=== PATIENT | male | born 1945 | race Caucasian/White ===

== ENCOUNTER 2022-05-07 13:21 | Inpatient (IN) | payer MEDICARE, OTHER ==
[~2022-05-07] VITALS: Ht 154.9 cm; Wt 102.7 kg
--- NOTE | 2022-05-07 14:00 | NUR ---
BIB FAMILY C/O NAUSEA VOMITING DIARRHEA, ABDOMINAL CRAMPING X 2 WEEKS.
[2022-05-07] MEDS ORDERED: MORPHINE SULFATE INJ 2 MG/ML DISP.SYRIN IV ONE (14:30)
[2022-05-07] MEDS ORDERED: FAMOTIDINE/PF INJ 20 MG/2 ML VIAL IV ONE ×2 (14:30→14:53)
[2022-05-07] MEDS ORDERED: IV NS 0.9% 1,000 ML IV ONE (14:30)
--- NOTE | 2022-05-07 14:45 | NUR ---
BLOOD DRAWN AND SENT TO LAB
[2022-05-07] MEDS ORDERED: MORPHINE SULFATE INJ 4 MG/ML DISP.SYRIN ONE (14:53)
[2022-05-07 15:04] LABS: BASOPHILS % (AUTO) 0.1 % (0.0-2.0); EOSINOPHILS % (AUTO) 0.1 % (0.0-6.0); HEMATOCRIT 38 % (39-51); HEMOGLOBIN 12.1 g/dL (13.5-17.5); LYMPHOCYTES # (AUTO) 1.5 K/uL (0.8-4.8); LYMPHOCYTES % (AUTO) 12.1 % (20.0-44.0); MEAN CORPUSCULAR HGB CONC 32 g/dl (31.0-36.0); MEAN CORPUSCULAR VOLUME 75 fL (80-96); MONOCYTES % (AUTO) 7.8 % (2.0-12.0); NEUTROPHILS # (AUTO) 10.1 K/uL (1.8-8.9); NEUTROPHILS % (AUTO) 79.9 % (43.0-81.0); PLATELET COUNT (AUTO) 358 K/uL (150-450); RED BLOOD CELL COUNT(AUTO) 5.04 MIL/uL (4.5-6.0); WHITE BLOOD COUNT (AUTO) 12.6 K/uL (4.3-11.0)
[2022-05-07 15:16] LABS: CALCIUM, SERUM 8.7 mg/dL (8.5-10.1); POTASSIUM 3.7 mmol/L (3.5-5.1)
[2022-05-07 15:29] LABS: ALBUMIN 2.8 g/dL (3.4-5.0); BILIRUBIN,TOTAL 0.8 mg/dL (0.2-1.0); TOTAL PROTEIN, SERUM 7.6 g/dL (6.4-8.2)
[2022-05-07] MEDS ORDERED: IOHEXOL-300 100 ML VIAL IV ONE (15:45)
--- NOTE | 2022-05-07 15:55 | NUR ---
URINE SAMPLE SENT TO LAB
[2022-05-07 16:07] LABS: BILIRUBIN,URINE NEGATIVE (NEGATIVE); COLOR,URINE YELLOW (YELLOW); LEUKOCYTE ESTERASE ,URINE NEGATIVE (NEGATIVE); NITRITE, URINE NEGATIVE (NEGATIVE); PROTEIN,URINE NEGATIVE (NEGATIVE); UGLUCOSE >=1000 mg/dL (NEGATIVE); UROBILINOGEN,URINE 0.2 EU/dL (0.2)
--- NOTE | 2022-05-07 16:11 | NUR ---
SWAB FOR COVID19 SENT TO LAB
[2022-05-07 16:15] LABS: BACTERIA,URINE None seen /HPF (None Seen); RBC,URINE 0-2 /HPF (0-2); SQUAMOUS EPITHELIAL CELL,UR 0-2 /HPF (None Seen); WBC,URINE 0-2 /HPF (0-3)
--- NOTE | 2022-05-07 16:25 | NUR ---
PATIENT TAKEN TO CT VIA TIMO
[2022-05-07] MEDS ORDERED: ONDANSETRON HCL/PF 4 MG/2 ML VIAL ONE (17:27)
[2022-05-07] MEDS ORDERED: HYDROMORPHONE 1 MG/1 ML DISP.SYRIN ONE (17:28)
[2022-05-07] MEDS ORDERED: ONDANSETRON HCL/PF 4 MG/2 ML VIAL IV ONE (17:30)
[2022-05-07] MEDS ORDERED: HYDROMORPHONE 1 MG/1 ML DISP.SYRIN IV ONE (17:30)
[2022-05-07] MEDS ORDERED: PIPERACILLIN /TAZOBACTAM 3.375 G in IV D5W 50 ML IV ONE (17:30)
[2022-05-07 17:36] LABS: ABG BASE EXCESS 2.2 mmol/L; ABG PCO2 40.3 mmHg (35.0-45.0); ABG PH 7.437 (7.350-7.450); ABG PO2 58.2 mmHg (75.0-100.0); COHb 0.9 % (0.5-1.5); O2Hb 88.4 % (94.0-97.0); SITE, ABG Other; VENT MODE, BG room air
--- NOTE | 2022-05-07 17:41 | NUR ---
MOVE SHEET SUBMITTED.
--- NOTE | 2022-05-07 17:44 | NUR ---
DR. GUEVARA SPEAKING WITH DR. TRAN
[2022-05-07] MEDS ORDERED: GLIP5TAB13 PO (17:45)
[2022-05-07] MEDS ORDERED: CLON0.1T PO (17:45)
[2022-05-07] MEDS ORDERED: ERGO500093 PO (17:45)
[2022-05-07] MEDS ORDERED: DOXA1TAB4 PO (17:45)
[2022-05-07] MEDS ORDERED: CARV12.52 PO (17:45)
[2022-05-07] MEDS ORDERED: ROSU20TA32 PO (17:45)
[2022-05-07] MEDS ORDERED: APIX5TAB PO (17:45)
[2022-05-07] MEDS ORDERED: INSU100I24 SQ (17:45)
[2022-05-07] MEDS ORDERED: EMPA10TA PO (17:45)
[2022-05-07] MEDS ORDERED: DICY10CA37 PO (17:45)
[2022-05-07] MEDS ORDERED: METF-441 PO (17:45)
[2022-05-07] MEDS ORDERED: LOSA1TAB39 PO (17:45)
--- NOTE | 2022-05-07 17:47 | NUR ---
[facility] CALLED PATIENT EDUCATOR PAGED.
[2022-05-07 17:55] LABS: BAND % (MANUAL) 1 % (0.0-5.0); LYMPHOCYTES % (MANUAL) 9 % (16-48); MONOCYTES % (MANUAL) 6 % (0-11.0); NEUTROPHILS % (MANUAL) 84 (42-76)
[2022-05-07] MEDS ORDERED: ACETAMINOPHEN 325 MG TABLET PO PRN (18:00)
[2022-05-07] MEDS ORDERED: hydrALAZINE HCL IV 20 MG VIAL IV PRN (18:00)
[2022-05-07] MEDS ORDERED: Z GUARD REMEDY 4 OZ OINT TP PRN (18:00)
[2022-05-07] MEDS ORDERED: PIPERACILLIN /TAZOBACTAM 3.375 G VIAL IV ONE (18:00)
[2022-05-07] MEDS ORDERED: MAG HYDROX/AL HYDROX/SIMETH 30 ML UDC PO PRN (18:00)
[2022-05-07] MEDS ORDERED: MAGNESIUM HYDROXIDE 30 ML UDC PO PRN (18:00)
[2022-05-07] MEDS ORDERED: DEXTROSE 50%-WATER 50 ML DISP.SYRIN IV PRN (18:00)
--- NOTE | 2022-05-07 19:38 | NUR ---
[address] [place] [address] 2
--- NOTE | 2022-05-07 19:52 | NUR ---
REPORT GIVEN TO VESNA RN ROOM 313-2 FOR SAMIA
[2022-05-07 20:15] VITALS: BP 133/57
[2022-05-07] MEDS: IV NS 0.9% 1,000 ML IV PRN (20:40)
--- NOTE | 2022-05-07 20:45 | NUR ---
MS CHIEF ENGINEER RESEARCH NOTE PATIENT ARRIVED FROM ER VIA WHEELCHAIR WITH DAUGHTER, PT ABLE TO AMBULATE, DOESN'T USE WALKER OR CANE AT HOME. PATIENT ALERT/ORIENTED X 3, PRIMARILY STATELESS SPEAKING BUT ABLE TO SPEAK ENOUGH KYRGYZ TO MAKE NEEDS KNOWN. NO C/O PAIN AT THIS TIME BUT PATIENT REPORTING NAUSEA. PATIENT STABLE ON RA, NO S/S OF DISTRESS OR SOB NOTED, BREATHING EVEN AND UNLABORED. PATIENT STATES HE DOESN'T HAVE DENTURES, HEARING AIDS OR PACEMAKER. PATIENT REFUSED SKIN ASSESSMENT BUT STATED HE DOESN'T HAVE ANY WOUNDS. PATIENT BROUGHT HOME MEDS WITH HIM, WILL TAKE TO PHARMACY IN AM. IV ACCESS ON RIGHT WRIST #20G INTACT AND FLUSHING WELL. PATIENT STATES HE HAS COVID VACCINE MODERNA X 3 BUT UNABLE TO REMEMBER DATES, PT QUALIFIES FOR FLU AND PNEUMONIA VACCINE, STATED HE WOULD LIKE TO GET THEM. ORIENTED PATIENT TO ROOM AND HOW TO USE CALL LIGHT. SAFETY MEASURES IN PLACE: CALL LIGHT WITHIN REACH, SIDE RAILS UP X 2, BED LOCKED IN LOWEST POSITION, BED ALARM ON. WILL CONTINUE TO MONITOR PATIENT
[2022-05-07] MEDS: CARVEDILOL 12.5 MG TABLET PO SCH (21:00)
[2022-05-07] MEDS: CLONIDINE HCL 0.1 MG TABLET PO SCH (21:00)
[2022-05-07] MEDS: ONDANSETRON HCL/PF 4 MG/2 ML VIAL IVP PRN (21:01)
--- NOTE | 2022-05-07 21:15 | NUR ---
MS RN NOTE HELD SCHEDULED CLONIDINE AND COREG D/T LOW HEART RATE = 54, BP WNL
[2022-05-07] MEDS: *INSULIN REGULAR(HUMULIN R)HUM 100 UNIT/ML VIAL SQ PRN (22:38)
[2022-05-07] MEDS: BLOOD SUGAR DIAGNOSTIC 1 EACH STRIP VI SCH (22:40)
[2022-05-08] MEDS: ZOSYN IVPB 3.375 G in IV D5W 50ml IV SCH ×4 (00:06→17:40)
[2022-05-08] MEDS: ONDANSETRON HCL/PF 4 MG/2 ML VIAL IVP PRN ×3 (03:05→18:17)
[2022-05-08] MEDS ORDERED: PIPERACILLIN /TAZOBACTAM 3.375 G VIAL IV ONE ×2 (05:50)
[2022-05-08 06:12] LABS: BASOPHILS % (AUTO) 0.1 % (0.0-2.0); HEMATOCRIT 38 % (39-51); HEMOGLOBIN 11.9 g/dL (13.5-17.5); LYMPHOCYTES # (AUTO) 1.2 K/uL (0.8-4.8); LYMPHOCYTES % (AUTO) 8.8 % (20.0-44.0); MEAN CORPUSCULAR HGB CONC 31 g/dl (31.0-36.0); MEAN CORPUSCULAR VOLUME 76 fL (80-96); MONOCYTES # (AUTO) 0.7 K/uL (0.1-1.30); MONOCYTES % (AUTO) 5.3 % (2.0-12.0); NEUTROPHILS % (AUTO) 85.8 % (43.0-81.0); PLATELET COUNT (AUTO) 356 K/uL (150-450); RED BLOOD CELL COUNT(AUTO) 5.02 MIL/uL (4.5-6.0); WHITE BLOOD COUNT (AUTO) 13.9 K/uL (4.3-11.0)
[2022-05-08] MEDS: MORPHINE SULFATE INJ 2 MG/ML DISP.SYRIN IV PRN ×2 (06:40→18:22)
[2022-05-08] MEDS: BLOOD SUGAR DIAGNOSTIC 1 EACH STRIP VI SCH ×4 (06:51→22:05)
[2022-05-08] MEDS: INSULIN REGULAR, HUMAN 100 UNIT/ML 3 ML VIAL SQ PRN ×2 (06:55→17:23)
--- NOTE | 2022-05-08 06:59 | NUR ---
MS RN CLOSING NOTE PATIENT AWAKE IN BED, ALERT/ORIENTED X 3, PT PRIMARILY BELGIAN SPEAKING BUT SPEAKS ENOUGH SERBIAN TO MAKE NEEDS KNOWN. PT STABLE ON RA, NO S/S OF DISTRESS OR SOB NOTED, BREATHING EVEN AND UNLABORED. IV ACCESS ON RIGHT WRIST #20G INTACT AND INFUSING NS @ 75 ML/HR. PATIENT NAUSEOUS MOST OF SHIFT, ZOFRAN ADMINISTERED BUT ONLY PROVIDED TEMPORARY RELIEF, NO EPISODES OF EMESIS. PATIENT C/O 04/17 ABDOMINAL PAIN, NOTIFIED CONVEYOR WEIGHER OPERATOR MD WITH ORDER FOR MORPHINE 2 MG IV Q4H. MEDICATIONS GIVEN ORDERED, PT NEEDS MET THROUGHOUT SHIFT. SAFETY MEASURES IN PLACE: CALL LIGHT WITHIN REACH, SIDE RAILS UP X 2, BED LOCKED IN LOWEST POSITION, BED ALARM ON. WILL CONTINUE TO MONITOR PATIENT
[2022-05-08 07:07] LABS: CALCIUM, SERUM 8.4 mg/dL (8.5-10.1); PHOSPHORUS 3.7 mg/dL (2.5-4.9); POTASSIUM 3.5 mmol/L (3.5-5.1)
[2022-05-08 08:00] VITALS: BP 137/89
--- NOTE | 2022-05-08 08:35 | NUR ---
RN OPENING NOTE RECEIVED PATIENT IN BED, AWAKE, ALERT AND ORIENTED. ABLE TO COMMUNICATE NEEDS WITH THE STAFFS. AFEBRILE AND NOT ON ANY FORM OF ACUTE DISTRESS. BREATHING EVEN AND NON LABORED. WITH IV ACCESS ON R WRIST 20G, INFUSING WITH NS AT 75ML/HR. SAFETY MEASURES IN PLACE. KEPT BED IN LOCKED AND IN LOW POSITION TO REDUCE INJURY. ADVISED TO USE THE CALL LIGHT WHEN IN NEED OF ASSISTANCE.
[2022-05-08] MEDS: DOXAZOSIN MESYLATE (1 MG) 1 MG TABLET PO SCH (09:04)
[2022-05-08] MEDS: CARVEDILOL 12.5 MG TABLET PO SCH ×2 (09:05→21:25)
[2022-05-08] MEDS: CLONIDINE HCL 0.1 MG TABLET PO SCH ×2 (09:05→21:26)
--- NOTE | 2022-05-08 10:21 | NUR ---
RN NOTES: RECEIVED ORDER FROM DR GUEVARA PT WILL HAVE SURGERY (CT GUIDED DRAINAGE OF DIVERTICULAR ABSCESS) TOMORROW. PT VERBALIZED HE HAD HIS ELIQUIS LAST Sunday05/06/22, NPO POST MIDNIGHT. ORDERS NOTED AND CARRIED OUT , PT MADE AWARE.
[2022-05-08] MEDS: IV NS 0.9% 1,000 ML IV PRN (11:41)
[2022-05-08] MEDS: *INSULIN REGULAR(HUMULIN R)HUM 100 UNIT/ML VIAL SQ PRN ×2 (12:10→22:06)
[2022-05-08 16:00] VITALS: BP 118/59
--- NOTE | 2022-05-08 18:48 | NUR ---
RN CLOSING NOTE PATIENT SITTING IN BED, ALERT AND ORIENTED X3. ABLE TO COMMUNICATE NEEDS WITH THE STAFFS. AFEBRILE AND NOT ON ANY FORM OF ACUTE DISTRESS. BREATHING EVEN AND NON LABORED. HAD 1 EMESIS THROUGHOUT THE SHIFT, MEDICATED ORDERED. WITH IV ACCESS ON RIGHT WRIST 20G, INFUSING WITH NS AT 75ML/HR. CONTINUOUS ON IV ATB FOR DIVERTICULITIS, MONITORED FOR ANY ADVERSE REACTION. MONITORED FOR ANY S/SX. OF HYPO/HYPERGLYCEMIA. PATIENT STATED THAT HE HADN'T HAD ANY BOWEL MOVEMENT FOR THE PAST 2 DAYS, GAVE MOM AND WAS EFFECTIVE. PATIENT IS FOR CT GUIDED DRAINAGE OF DIVERTICULAR ABSCESS, CONSENT SIGNED AND SECURED AND PLACED IN THE CHART. ADVISED THE PATIENT TO START NPO AT MIDNIGHT. SAFETY MEASURES IN PLACE. KEPT BED IN LOCKED AND IN LOW POSITION. SIDE RAILS UP. CALL LIGHT WITHIN EASY REACH. ALL NURSING NEEDS ATTENDED.
[2022-05-08 20:00] VITALS: BP 122/59
--- NOTE | 2022-05-08 20:10 | NUR ---
noc rn note patient requesting sleeping medication tonight. per patient he takes ambien 10mg at home. Messaged concrete mixer loader truck mounted, Temo Anderson DNP. ordered ambien 5mg po hs PRN.
[2022-05-08] MEDS: ZOLPIDEM TARTRATE 5 MG TABLET PO PRN (21:26)
[2022-05-09] MEDS: ZOSYN IVPB 3.375 G in IV D5W 50ml IV SCH ×4 (00:13→18:12)
[2022-05-09] MEDS: BLOOD SUGAR DIAGNOSTIC 1 EACH STRIP VI SCH ×4 (06:32→22:08)
--- NOTE | 2022-05-09 07:03 | NUR ---
noc rn closing patient in bed, a/ox4 verbalizing that he still wants to sleep. no s/s of apparent distress on room air. per patient his pain is manageable and not needing pain medication. denies any nausea and vomiting throughout shift. iv ns running at 75mls/hr this time. all needs attended. safety kept in place throughout shift. will endorse to morning shift rn for continuity of patient care.
--- NOTE | 2022-05-09 07:30 | NUR ---
RN Opening note Patient AOx4 able to express his own concerns. No signs of distress. Patient aware of pending procedure and the need to stay NPO. Patient states he is on some pain 3/10, but does not want to take any pain medication at the moment until he is seen by the surgery team. All safety precautions taken, call light and table within reach, bed at lowest position
[2022-05-09 08:00] VITALS: BP 100/60
[2022-05-09 08:28] LABS: HEMATOCRIT 37 % (39-51); HEMOGLOBIN 11.4 g/dL (13.5-17.5); LYMPHOCYTES # (AUTO) 1.1 K/uL (0.8-4.8); LYMPHOCYTES % (AUTO) 13.9 % (20.0-44.0); MEAN CORPUSCULAR HGB CONC 31 g/dl (31.0-36.0); MEAN CORPUSCULAR VOLUME 77 fL (80-96); MONOCYTES % (AUTO) 11.6 % (2.0-12.0); NEUTROPHILS # (AUTO) 6.1 K/uL (1.8-8.9); NEUTROPHILS % (AUTO) 74.5 % (43.0-81.0); PLATELET COUNT (AUTO) 343 K/uL (150-450); RED BLOOD CELL COUNT(AUTO) 4.78 MIL/uL (4.5-6.0); WHITE BLOOD COUNT (AUTO) 8.2 K/uL (4.3-11.0)
[2022-05-09 08:31] LABS: CARBON DIOXIDE 29 mmol/L (21-32); CHLORIDE 100 mmol/L (98-107); CREATININE 1.1 mg/dL (0.6-1.3); GLUCOSE 158 mg/dL (74-106); POTASSIUM 3.8 mmol/L (3.5-5.1); SODIUM SERUM 135 mmol/L (136-145); UREA NITROGEN, BLOOD 20 mg/dL (7-18)
[2022-05-09] MEDS: CARVEDILOL 12.5 MG TABLET PO SCH ×2 (09:00→21:33)
[2022-05-09] MEDS: DOXAZOSIN MESYLATE (1 MG) 1 MG TABLET PO SCH (09:00)
[2022-05-09] MEDS: CLONIDINE HCL 0.1 MG TABLET PO SCH ×2 (09:00→21:33)
[2022-05-09] MEDS ORDERED: IV NS 0.9% 1,000 ML IV PRN (13:37)
[2022-05-09 16:00] VITALS: BP 100/50
[2022-05-09] MEDS: MORPHINE SULFATE INJ 2 MG/ML DISP.SYRIN IV PRN (17:40)
[2022-05-09] MEDS: *INSULIN REGULAR(HUMULIN R)HUM 100 UNIT/ML VIAL SQ PRN (17:53)
--- NOTE | 2022-05-09 18:28 | NUR ---
RN Closing Note Pt. AOx4 able to express his concerns. Patient with no signs of discomfort or distress. Provided care as needed and medications as prescribed All safety precautions taken throughout shift. IV fluids running, no signs of infiltration, no pain at site reported. Patient remained safe, call light and table within reach, bed at lowest position. Will endorse report to night nurse for continuity of care.
--- NOTE | 2022-05-09 19:51 | NUR ---
RN OPENING NOTE RECEIVED PATIENT IN BED, AWAKE, AOX4,GINA WELL ON RM AIR .NO SOB/DISTRESS NOTED,BREATHING EVEN AND NON LABORED. WITH IV ACCESS ON R WRIST 20G, INFUSING WITH NS AT 75ML/HR. SAFETY MEASURES IN PLACE. CALL LIGHT WITHIN REACH,WILL CONTINUE TO MONITOR.
[2022-05-09 20:00] VITALS: BP 115/74
[2022-05-10] MEDS: ZOSYN IVPB 3.375 G in IV D5W 50ml IV SCH ×4 (00:13→17:01)
[2022-05-10] MEDS: SIMETHICONE 80 MG TAB.CHEW PO PRN ×3 (01:07→19:05)
[2022-05-10 06:00] LABS: BASOPHILS % (AUTO) 0.1 % (0.0-2.0); EOSINOPHILS % (AUTO) 0.3 % (0.0-6.0); HEMATOCRIT 34 % (39-51); HEMOGLOBIN 10.8 g/dL (13.5-17.5); LYMPHOCYTES # (AUTO) 0.9 K/uL (0.8-4.8); LYMPHOCYTES % (AUTO) 14.3 % (20.0-44.0); MEAN CORPUSCULAR HGB CONC 32 g/dl (31.0-36.0); MEAN CORPUSCULAR VOLUME 76 fL (80-96); MONOCYTES # (AUTO) 0.8 K/uL (0.1-1.30); MONOCYTES % (AUTO) 13.6 % (2.0-12.0); NEUTROPHILS # (AUTO) 4.3 K/uL (1.8-8.9); NEUTROPHILS % (AUTO) 71.7 % (43.0-81.0); PLATELET COUNT (AUTO) 292 K/uL (150-450); RED BLOOD CELL COUNT(AUTO) 4.45 MIL/uL (4.5-6.0)
--- NOTE | 2022-05-10 06:24 | NUR ---
RN CLOSING NOTE; PATIENT IN BED, AWAKE, AOX4,GINA WELL ON RM AIR .NO SOB/DISTRESS NOTED,BREATHING EVEN AND NON LABORED.NO COMPLAINED OF PAIN/DISCOMFORT DURING SHIFT,DUE MEDS GIVEN ORDER,ALL NEEDS ATTENDED, WITH IV ACCESS ON R WRIST 20G, INFUSING WITH NS AT 125ML/HR. SAFETY MEASURES IN PLACE. CALL LIGHT WITHIN REACH,WILL ENDORSED TO NEXT SHIFT.
[2022-05-10 06:35] LABS: CALCIUM, SERUM 7.8 mg/dL (8.5-10.1); MAGNESIUM 2.1 mg/dL (1.8-2.4); PHOSPHORUS 3.2 mg/dL (2.5-4.9); POTASSIUM 3.3 mmol/L (3.5-5.1)
[2022-05-10] MEDS: BLOOD SUGAR DIAGNOSTIC 1 EACH STRIP VI SCH ×4 (06:45→21:46)
[2022-05-10] MEDS: *INSULIN REGULAR(HUMULIN R)HUM 100 UNIT/ML VIAL SQ PRN (06:45)
[2022-05-10 08:00] VITALS: BP 105/64
[2022-05-10] MEDS: DOXAZOSIN MESYLATE (1 MG) 1 MG TABLET PO SCH (08:18)
[2022-05-10] MEDS: CLONIDINE HCL 0.1 MG TABLET PO SCH ×2 (08:18→21:13)
[2022-05-10] MEDS: CARVEDILOL 12.5 MG TABLET PO SCH ×2 (08:19→21:00)
--- NOTE | 2022-05-10 08:34 | NUR ---
MS RN OPENING NOTE RECEIVED PATIENT IN BED, AWAKE, ALERT AND ORIENTED X 3. ABLE TO COMMUNICATE NEEDS. BREATHING EVEN AND NON LABORED ON RA; NO S/S OF SOB AND ACUTE DISTRESS. IV ACCESS ON R WRIST 20G, INFUSING NS AT 75ML/HR. PT C/O ABD GAS DISCOMFORT, WILL MEDICATE PER ORDERED. SAFETY MEASURES IN PLACE. KEPT BED IN LOCKED AND IN LOW POSITION. CALL LIGHT AND TABLE WITHIN REACH, ADVISED TO USE THE CALL LIGHT WHEN IN NEED OF ASSISTANCE. RN WILL CONT WITH PLAN OF CARE DURING SHIFT.
[2022-05-10] MEDS ORDERED: POTASSIUM CHLORIDE 20 MEQ POWDER PACKET PO ONE (11:30)
[2022-05-10] MEDS: INSULIN REGULAR, HUMAN 100 UNIT/ML 3 ML VIAL SQ PRN ×3 (11:54→21:46)
[2022-05-10 16:00] VITALS: BP 116/60
[2022-05-10] MEDS: ZOLPIDEM TARTRATE 5 MG TABLET PO PRN (19:05)
--- NOTE | 2022-05-10 19:30 | NUR ---
RN OPENING NOTE RECEIVED PATIENT IN BED, AWAKE, AOX4,GINA WELL ON RM AIR .NO SOB/DISTRESS NOTED,BREATHING EVEN AND NON LABORED.NO COMPLAINE OF PAIN /DISCOMFORT AT THIS TIME,WITH IV ACCESS ON R WRIST 20G SL PATENT AND INTACT, SAFETY MEASURES IN PLACE. CALL LIGHT WITHIN REACH,WILL CONTINUE TO MONITOR.
--- NOTE | 2022-05-10 19:51 | NUR ---
MS RN CLOSING NOTES: PATIENT IN BED, AWAKE, ALERT AND ORIENTED X 3. ABLE TO COMMUNICATE NEEDS. BREATHING EVEN AND NON LABORED ON RA; NO S/S OF SOB AND ACUTE DISTRESS. IV ACCESS ON R WRIST 20G, SL. PT REQUESTED SLEEP MEDICATION BEFORE CHANGE OF SHIFT, WILL MEDICATE ORDERED. ALL NEEDS MET, KEPT CLEAN, DRY AND COMFORTABLE. SAFETY MEASURES IN PLACE. KEPT BED IN LOCKED AND IN LOW POSITION. CALL LIGHT AND TABLE WITHIN REACH, ADVISED TO USE THE CALL LIGHT WHEN IN NEED OF ASSISTANCE, PT VERBALIZED UNDERSTANDING; ENDORSED TO PM SHIFT.
[2022-05-10 20:00] VITALS: BP 104/64
[2022-05-11] MEDS: ZOSYN IVPB 3.375 G in IV D5W 50ml IV SCH ×4 (00:31→17:22)
[2022-05-11 06:03] LABS: BASOPHILS % (AUTO) 0.1 % (0.0-2.0); EOSINOPHILS % (AUTO) 0.8 % (0.0-6.0); HEMATOCRIT 33 % (39-51); HEMOGLOBIN 10.7 g/dL (13.5-17.5); MEAN CORPUSCULAR HGB CONC 32 g/dl (31.0-36.0); MEAN CORPUSCULAR VOLUME 77 fL (80-96); MONOCYTES # (AUTO) 0.9 K/uL (0.1-1.30); MONOCYTES % (AUTO) 15.9 % (2.0-12.0); NEUTROPHILS # (AUTO) 3.5 K/uL (1.8-8.9); NEUTROPHILS % (AUTO) 64.2 % (43.0-81.0); PLATELET COUNT (AUTO) 262 K/uL (150-450); RED BLOOD CELL COUNT(AUTO) 4.34 MIL/uL (4.5-6.0); WHITE BLOOD COUNT (AUTO) 5.5 K/uL (4.3-11.0)
--- NOTE | 2022-05-11 06:16 | NUR ---
RN CLOSING NOTE; PATIENT IN BED, AWAKE, AOX4,GINA WELL ON RM AIR .NO SOB/DISTRESS NOTED,BREATHING EVEN AND NON LABORED.NO COMPLAINED OF PAIN/DISCOMFORT DURING SHIFT,DUE MEDS GIVEN ORDER,ALL NEEDS ATTENDED, WITH IV ACCESS ON R WRIST 20G SL,SAFETY MEASURES IN PLACE. CALL LIGHT WITHIN REACH,WILL ENDORSED TO NEXT SHIFT.
[2022-05-11 07:03] LABS: CALCIUM, SERUM 8.1 mg/dL (8.5-10.1); CREATININE 0.8 mg/dL (0.6-1.3); PHOSPHORUS 2.9 mg/dL (2.5-4.9); POTASSIUM 3.4 mmol/L (3.5-5.1)
--- NOTE | 2022-05-11 07:35 | NUR ---
MS RN OPENING NOTES: PATIENT SITTING IN BED, AWAKE, ALERT AND ORIENTED X 3. ABLE TO COMMUNICATE NEEDS. BREATHING EVEN AND NON LABORED ON RA; NO S/S OF SOB AND ACUTE DISTRESS. DENIES PAIN AT THIS TIME. IV ACCESS ON R WRIST 20G, SL. SAFETY MEASURES IN PLACE. KEPT BED IN LOCKED AND IN LOW POSITION. CALL LIGHT AND TABLE WITHIN REACH, ADVISED TO USE THE CALL LIGHT WHEN IN NEED OF ASSISTANCE, PT VERBALIZED UNDERSTANDING; WILL CONT WITH PLAN OF CARE DURING SHIFT.
[2022-05-11 08:00] VITALS: BP 111/49
[2022-05-11] MEDS: DOXAZOSIN MESYLATE (1 MG) 1 MG TABLET PO SCH (08:12)
[2022-05-11 08:13] VITALS: BP 111/49
[2022-05-11] MEDS: CLONIDINE HCL 0.1 MG TABLET PO SCH (08:13)
[2022-05-11] MEDS: CARVEDILOL 12.5 MG TABLET PO SCH (08:13)
[2022-05-11] MEDS: BLOOD SUGAR DIAGNOSTIC 1 EACH STRIP VI SCH ×3 (08:56→17:21)
[2022-05-11] MEDS: SIMETHICONE 80 MG TAB.CHEW PO PRN (09:34)
--- NOTE | 2022-05-11 10:48 | NUR ---
MS RN NOTES: PT C/O OF ABD GASSINESS, MEDICATED ORDERED. AM BP MEDS HELD, PT BP -111/48, HR 68, WILL CONT TO REASSESS DURING SHIFT.
[2022-05-11] MEDS ORDERED: POTASSIUM CHLORIDE 20 MEQ POWDER PACKET PO SCH (11:00)
[2022-05-11] MEDS: INSULIN REGULAR, HUMAN 100 UNIT/ML 3 ML VIAL SQ PRN (11:29)
[2022-05-11] MEDS ORDERED: METR500T PO (13:40)
[2022-05-11] MEDS ORDERED: CIPR500S3 PO (13:40)
[2022-05-11] MEDS ORDERED: INFLUENZA VACCINE 2022-23 0.5 ML DISP.SYRIN IM ONE (15:00)
[2022-05-11] MEDS ORDERED: PNEUMOCOCCAL 23-VAL P-SAC VAC 0.5 ML VIAL SQ ONE (15:00)
--- NOTE | 2022-05-11 16:45 | NUR ---
MS RN DC NOTES: PT CLINICALLY STABLE FOR DISCHARGE. VS WNL, NO S/S OF ACUTE DISTRESS AND SOB ON RA. DISCUSSED DC INSTRUCTIONS WITH PATIENT, ADDRESSED QUESTIONS APPROPRIATE, PT VERBALIZED UNDERSTANDING. DC DOCS, BELONGINGS LIST AND HOME MEDICATION RETURNED AND SIGNED. FLU AND PNA VACCINE ADMINISTERED. ID BAND AND IV ACCESS REMOVED. PT ESCORTED TO LOBBY BY STAFF; DAUGHTER CHAPIS MET PT AND STAFF IN FRONT OF LOBBY. PT'S TRANSPORTATION IS PRIVATE CAR.
== END 2022-05-11 17:45 | disposition home or self-care (01) | DRG 391 ==
LOC: ER 13:30 → TRANSITION 18:32 → MED 19:39
PROVIDERS: ADMIT Internal Medicine; ATTEND Student in an Organized Health Care Education/Training Program
DX: K57.20 Diverticulitis of large intestine with perforation and abscess without bleeding (principal); E43 Unspecified severe protein-calorie malnutrition; E87.1 Hypo-osmolality and hyponatremia; D68.59 Other primary thrombophilia; K56.7 Ileus, unspecified; E11.9 Type 2 diabetes mellitus without complications; I48.91 Unspecified atrial fibrillation; Z20.822 Contact with and (suspected) exposure to COVID-19; Z79.01 Long term (current) use of anticoagulants; Z79.4 Long term (current) use of insulin; Z79.84 Long term (current) use of oral hypoglycemic drugs; Z79.899 Other long term (current) drug therapy; E86.1 Hypovolemia; N40.0 Benign prostatic hyperplasia without lower urinary tract symptoms; I10 Essential (primary) hypertension; E66.01 Morbid (severe) obesity due to excess calories; K80.20 Calculus of gallbladder without cholecystitis without obstruction
CPT/HCPCS: 36415; 36600; 80048-TC; 80053-TC; 81001; 82803-TC; 82962-TC; 83605-TC; 83690-TC; 83735-TC; 84100-TC; 84484-TC; 85025-TC; 85610-TC; 85730-TC; 87081-TC; 90732; C9803; G0378; J1170; J2270; J2405; J2543; J3490; J7030; J7060; Q2036; Q9967